=== PATIENT | male | born 1960 | race Caucasian/White ===

== ENCOUNTER 2024-05-20 09:43 | Day surgery (SDC) | payer OTHER ==
[2024-05-16 11:39] LABS: Anion Gap 7.2 mEq/L (5.0-15.0); Potassium 4.2 mEq/L (3.5-5.1)
[2024-05-16 11:44] LABS: Absolute Lymphocytes (CBC) 1.2 K/uL (0.7-4.9); Absolute Monocytes 0.6 K/uL (0.1-1.3); Absolute Neutrophil 4.1 K/uL (1.8-8.0); Basophils % 0.4 % (0-1.3); Eosinophils % 0.7 % (0-4.4); Hematocrit 42.1 % (39.6-49.0); Hemoglobin 14.6 g/dL (13.6-17.9); Lymphocytes % 19.5 % (15.3-44.8); MCH 34.6 pg (27.0-35.0); MCHC 34.6 g/dL (32.0-36.0); MPV 8.6 fL (7.6-11.3); Monocytes % 10.9 % (3.3-12.3); Neutrophils % 68.5 % (41.7-73.7); Nucleated Red Blood Cells % 0.1 % (0-0); Platelets 167 thou/uL (152-406); RBC Red Blood Cell Count 4.21 M/uL (4.33-5.43); Red Cell Distribution Width 13.6 % (12.1-15.2)
--- NOTE | 2024-05-16 14:12 | EKG ---
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
[2024-05-20] MEDS: Ringers Lactate 1,000 ML IV ONE (10:55)
[2024-05-20] MEDS ORDERED: BUPIVACAINE 0.25% PF 30 ML VIAL ONE (12:06)
[2024-05-20] MEDS ORDERED: NEOSTIGMINE 1 MG/ML -10 ML VIAL ONE (12:10)
[2024-05-20] MEDS ORDERED: MIDAZOLAM HCL 2 MG/2 ML INJ ONE (12:10)
[2024-05-20] MEDS ORDERED: LIDOCAINE 2% MPF 5 ML VIAL ONE (12:10)
[2024-05-20] MEDS ORDERED: FENTANYL CITR 100 MCG/2 ML ONE ×2 (12:10→12:40)
[2024-05-20] MEDS ORDERED: ONDANSETRON 4 MG/2 ML VIAL ONE (12:10)
[2024-05-20] MEDS ORDERED: propofoL 200 MG/20 ML VIAL IV ONE (12:10)
[2024-05-20] MEDS ORDERED: GLYCOPYRROLATE 0.2 MG/ML SYR ONE (12:10)
[2024-05-20] MEDS ORDERED: ROCURONIUM 50 MG/5 ML VIAL IV ONE (12:11)
[2024-05-20] MEDS: CEFAZOLIN SODIUM 2 GM/VIAL ONE (12:25)
[2024-05-20] MEDS ORDERED: dexAMETHasone 10 MG/ML VIAL ONE (12:40)
[2024-05-20] MEDS ORDERED: EPHEDRINE SULF 50 MG/ML VIAL ONE (12:53)
[2024-05-20] MEDS: LIDOCAINE HCL/EPINEPHRINE 20 ML MDV ONE (12:53)
--- NOTE | 2024-05-20 13:18 | P.OP ---
Preoperative diagnosis: Umbilical Hernia Postoperative diagnosis: Umbilical Hernia Primary procedure: Laparoscopic Umbilical Hernia Repair with Mesh Anesthesia: GETA + Local Estimated blood loss: <5cc Specimen: Hernia Contents Findings: Incarcerated adipose Complications: None Implants: Bard Ventralite ST 11.4cm Round, Sorbafix x 45 Transferred to: Recovery Room Condition: Good
[2024-05-20] MEDS: HYDROMORPHONE HCL 1 MG/ML INJ ONE ×2 (13:41→14:07)
[2024-05-20] MEDS: FENTANYL CITR 100 MCG/2 ML ONE (13:47)
[2024-05-20] MEDS: MEPERIDINE HCL 25 MG/ML SYR ONE (13:54)
[2024-05-20] MEDS: PROMETHAZINE INJ 25 MG/ML AMP ONE (14:25)
[2024-05-20] MEDS: Ringers Lactate 500 ML IV ONE (14:29)
[2024-05-20 14:36] VITALS: TEMP 98
[2024-05-20] MEDS: HYDROCODONE/APAP 10/325 TAB ONE (14:46)
--- NOTE | 2024-05-20 15:07 | OP ---
Date of Procedure: 05/20/2024 Surgeon: Wilner Ferreira MD, Preoperative Diagnosis: Umbilical hernia. Postoperative Diagnosis: Umbilical hernia. Procedure Performed: Laparoscopic umbilical hernia repair with mesh. Anesthesia: General endotracheal plus local with 1% lidocaine with epinephrine. Estimated Blood Loss: Less than 5 cc. Specimen: Hernia contents. Findings: Incarcerated adipose tissue. Complications: None. Implants: Bard Ventralight ST mesh with Echo Positioning System, 11.4 cm round mesh, utilized SorbaF ix Absorbable Fixation tacks x45. Disposition: The patient was transferred to recovery room in good condition. Procedure In Detail: After informed consent was obtained, the patient was brought to the operating r oom, prepped and draped in usual sterile fashion. After adequate anesthesia was achieved, I anesthet ized an area in the left upper quadrant down to subcutaneous tissue. 5-mm 0-degree optical trocar wa s introduced in the abdomen without incident or complication. Insufflation was obtained to 15 mmHg, at this time. There was no injury to vital structures upon entry into the abdomen. Additional troca r was placed in the left lower abdomen. This was similar anesthetized and sharply incised. A 12 mm trocar was placed under direct visualization without incident or complication. I then proceeded to use the LigaSure device to take down preperitoneal fat and the incarcerated omentum from the incarcer ated 1.5 cm umbilical hernia with discoloration of the umbilicus. After I removed the incarcerated a dipose tissue, I had some improvement in perfusion in this area. I removed all the hernia contents, sent for pathologic examination. At this point, I skeletonized the preperitoneal fat back proximally and distally to allow for appropriate landing zone. At this point, I deployed the Endo Stitch with an 0 V-Loc suture and secured the hernia sac by closing and imbricating the hernia sac, at this point , with good apposition of the tissues. I then deployed 11.[address] mesh with Echo Po sitioning System. 11.4 cm round mesh was centered at the point of the superior umbilicus. At this p oint, it was deployed and secured to the anterior abdominal wall with a single crown of SorbaFix Abso rbable Fixation tacks. The balloon deployment system was removed, sent off on the back table, counte d and found to be appropriate numbers with no foreign bodies were retained. At this point, I placed a total of 45 SorbaFix Absorbable Fixation tacks to the intraabdominal wall double crown type orienta tion with good apposition of mesh to the anterior abdominal wall. No hemostasis measures were requir ed. At this point, the 12 mm trocar site was closed using a Leland-Sarah suture passer with an 0 Vicryl in interrupted fashion, good approximation of the tissue. The abdomen was desufflated under d irect visualization without incident or complication. Remainder of trocars were removed. All skin i ncisions were then copiously irrigated and closed with a 4-0 Monocryl in a running fashion. Dermabon d was placed over top. The patient tolerated the procedure well without incident or complication and transferred to PACU in good condition. All counts were correct at the end of the case. MARIA LUISA/MASON Voice ID: [id number] Report ID: [id number]
[2024-05-20] MEDS ORDERED: HYDROCODONE/APAP 10/325 TAB PO ONE (15:08)
[2024-05-20 15:16] VITALS: BP 123/78; O2SAT 94
== END 2024-05-20 15:27 | disposition home or self-care (01) ==
LOC: OR 09:43
PROVIDERS: ATTEND Surgery
PROC: 0WUF4JZ Supplement Abdominal Wall with Synthetic Substitute, Percutaneous Endoscopic Approach (ICD-10-PCS; principal; 2024-05-20 12:23)
DX: K42.9 Umbilical hernia without obstruction or gangrene (principal); I10 Essential (primary) hypertension; E78.00 Pure hypercholesterolemia, unspecified
CPT/HCPCS: 93005; 85025; 80048; 36415; 88302; 49591; L0625; J2550; J2704; J2710; J2003; J2250; J3010 ×3; J1100; J2175; J1171 ×2; J2405; J7120; C1781